=== PATIENT | male | born 1975 | race Caucasian/White ===

== ENCOUNTER 2017-05-13 10:34 | Emergency (ER) | payer OTHER ==
[~2017-05-13] VITALS: Ht 177.8 cm; Wt 83.0 kg
[~2017-05-13 10:34] MED LIST: DILANTIN PO; KLONOPIN PO; SEIZURE MED
== END 2017-05-13 11:08 | disposition home or self-care (01) ==
LOC: CED 10:34 → CFTX 10:34
DX: S01.91XD Laceration without foreign body of unspecified part of head, subsequent encounter (principal); F17.210 Nicotine dependence, cigarettes, uncomplicated; X58.XXXD Exposure to other specified factors, subsequent encounter
CPT/HCPCS: 99281